=== PATIENT | male | born 1985 | race Caucasian/White ===

== ENCOUNTER 2020-03-28 14:00 | Outpatient (REF) | payer OTHER, SELFPAY ==
--- NOTE | 2020-03-28 14:28 | XR_ITS ---
EXAMINATION: XR CHEST CLINICAL INFORMATION: Shortness of breath COMPARISON: None TECHNIQUE: 2 views of the chest were obtained. FINDINGS: No significant abnormality is noted involving the heart, lungs, mediastinum, bony thorax or soft tissues. XR/XR chest 2V IMPRESSION: Unremarkable examination.
[2020-03-28 14:48] LABS: Hematocrit 46.1 % (42-52); Hemoglobin 15.7 g/dl (14.0-18.0); Mean Corpuscular HGB Conc 34.1 g/dl (31.0-36.0); Mean Platelet Volume 9.6 fL (9.4-12.4); Platelet Count 220 X10*3/uL (160-400); Red Blood Count 5.24 X10*6/uL (4.60-5.80); Red Cell Distribution Width 12.2 % (11.0-16.0); White Blood Count 5.9 X10*3/uL (4.8-10.8)
[2020-03-28 15:12] LABS: Alanine Aminotransferase 21 U/L (0-40); Albumin Level 4.9 g/dL (3.5-5.0); Alkaline Phosphatase 53 U/L (39-117); Anion Gap 13 (12-20); Aspartate Amino Transferase 18 U/L (5-37); Bilirubin Direct < 0.2 mg/dL (0.0-0.5); Bilirubin Total 0.4 mg/dL (0.0-1.0); Blood Urea Nitrogen 18 mg/dL (9-16); Calcium 9.8 mg/dL (8.4-10.2); Carbon Dioxide 29 mmol/L (22-29); Chloride 102 mmol/L (96-108); Cholesterol 284 mg/dL; Estimated Glomerular Filt Rate > 60; Glucose Random 98 mg/dL (60-115); HDL Cholesterol 43 mg/dL; Potassium 4.7 mmol/l (3.3-5.1); Sodium 139 mmol/L (135-145); Total Protein 7.8 g/dL (6.5-8.0); Triglycerides 407 mg/dL
== END 2020-03-28 14:01 | disposition home or self-care (01) ==
LOC: HO.LAB 14:00
PROVIDERS: PCP Internal Medicine; Visit Provider Internal Medicine
DX: Z00.01 Encounter for general adult medical examination with abnormal findings (principal); R06.02 Shortness of breath
CPT/HCPCS: 36415; 71046; 80048; 80061; 80076; 85027

== ENCOUNTER → 2020-07-11 13:54 | Outpatient (BNVA) | payer OTHER, SELFPAY | PROVIDERS: PCP Internal Medicine; Visit Provider Urology | DX: Z30.09 Encounter for other general counseling and advice on contraception (principal); F41.8 Other specified anxiety disorders | CPT/HCPCS: 99202 ==

== ENCOUNTER → 2020-11-22 10:48 | Outpatient (BNVA) | payer OTHER, SELFPAY | PROVIDERS: PCP Internal Medicine; Visit Provider Urology | DX: Z30.09 Encounter for other general counseling and advice on contraception (principal); F41.8 Other specified anxiety disorders | CPT/HCPCS: 55250 ==

== ENCOUNTER → 2021-02-23 09:12 | Outpatient (BNVA) | payer BC, OTHER, SELFPAY | PROVIDERS: PCP Internal Medicine; Visit Provider Urology | DX: Z48.816 Encounter for surgical aftercare following surgery on the genitourinary system (principal); Z98.52 Vasectomy status; F41.8 Other specified anxiety disorders | CPT/HCPCS: 99212 ==

== ENCOUNTER 2021-10-17 08:38 | Outpatient (REF) | payer BC, SELFPAY ==
[2021-10-17 09:14] LABS: Hematocrit 49.3 % (42.0-52.0); Hemoglobin 16.8 g/dl (14.0-18.0); Mean Corpuscular HGB Conc 34.1 g/dl (31.0-36.0); Mean Platelet Volume 9.3 fL (9.4-12.4); Platelet Count 221 X10*3/uL (160-400); Red Cell Distribution Width 12.6 % (11.0-16.0); White Blood Count 4.9 X10*3/uL (4.8-10.8)
[2021-10-17 09:50] LABS: Alanine Aminotransferase 20 U/L (0-40); Albumin Level 4.8 g/dL (3.5-5.0); Alkaline Phosphatase 55 U/L (39-117); Anion Gap 13 (12-20); Aspartate Amino Transferase 17 U/L (5-37); Bilirubin Direct 0.2 mg/dL (0.0-0.5); Bilirubin Total 0.7 mg/dL (0.0-1.0); Blood Urea Nitrogen 13 mg/dL (9-16); Calcium 9.6 mg/dL (8.4-10.2); Carbon Dioxide 27 mmol/L (22-29); Chloride 103 mmol/L (96-108); Cholesterol 272 mg/dL; Estimated Glomerular Filt Rate > 60; Glucose Random 105 mg/dL (60-115); HDL Cholesterol 47 mg/dL; LDL Cholesterol Calculated 171 mg/dl; Potassium 4.5 mmol/L (3.3-5.1); Sodium 138 mmol/L (135-145); Total Protein 7.9 g/dL (6.5-8.0); Triglycerides 270 mg/dL
[2021-10-17 10:00] LABS: Thyroid Stimulating Hormone 1.64 uIU/mL (0.32-4.0)
[2021-10-17 11:58] LABS: Appearance Urine CLEAR; Color Urine YELLOW; Glucose Urine UA NEG (NEG); Leukocyte Esterase Urine NEG (NEG); Nitrite Urine NEG (NEG); PH 5.5 (5.0-8.0); Specific Gravity - Urine >= 1.030 (1.005-1.025); Urine Blood 2+ (NEG); Urine Ketones NEG (NEG); Urine Protein NEG (NEG-TRACE)
[2021-10-17 12:39] LABS: RBC Urine 0-2 /HPF (0); WBC Urine 0-2 /HPF (0-4)
== END 2021-10-17 08:39 | disposition home or self-care (01) ==
LOC: HO.LAB 08:38
PROVIDERS: PCP Internal Medicine; Visit Provider Internal Medicine
DX: Z00.01 Encounter for general adult medical examination with abnormal findings (principal)
CPT/HCPCS: 36415; 80048; 80061; 80076; 81001; 81003; 84443; 85027

== ENCOUNTER 2022-10-17 08:33 | Outpatient (REF) | payer OTHER, SELFPAY ==
[2022-10-17 09:47] LABS: Hematocrit 48.1 % (42.0-52.0); Hemoglobin 16.3 g/dl (14.0-18.0); Mean Corpuscular HGB Conc 33.9 g/dl (31.0-36.0); Mean Corpuscular Hemoglobin 29.3 pg (27.0-33.0); Mean Corpuscular Volume 86.4 fL (80.0-98.0); Mean Platelet Volume 9.8 fL (9.4-12.4); Platelet Count 183 X10*3/uL (160-400); Red Blood Count 5.57 X10*6/uL (4.60-5.80); Red Cell Distribution Width 12.3 % (11.0-16.0)
[2022-10-17 09:50] LABS: Appearance Urine Clear; Color Urine Yellow; Glucose Urine UA Negative (Negative); Leukocyte Esterase Urine Negative (Negative); Nitrite Urine Negative (Negative); PH 5.5 (5.0-9.0); Specific Gravity - Urine >= 1.030 (1.005-1.025); UMIC TRIGGER UA YES; Urine Blood Moderate (2+) (Negative); Urine Ketones Negative (Negative); Urine Protein Trace mg/dL (Neg-Trace)
[2022-10-17 09:53] LABS: Bacteria Urine None Seen (None Seen); Hyaline Casts Urine 0-2 /LPF (0-2); Squamous Epithelial Cell Urine 0-2 /HPF (0-2); WBC Urine 0-5 /HPF (0-5)
[2022-10-17 10:05] LABS: Alanine Aminotransferase 24 U/L (0-40); Albumin Level 4.6 g/dL (3.5-5.0); Alkaline Phosphatase 57 U/L (39-117); Anion Gap 12 (12-20); Aspartate Amino Transferase 20 U/L (5-37); Bilirubin Direct 0.2 mg/dL (0.0-0.5); Bilirubin Total 0.6 mg/dL (0.0-1.0); Blood Urea Nitrogen 16 mg/dL (9-16); Calcium 9.8 mg/dL (8.4-10.2); Carbon Dioxide 28 mmol/L (22-29); Chloride 105 mmol/L (96-108); Cholesterol 160 mg/dL; Estimated Glomerular Filt Rate > 60; Glucose Random 102 mg/dL (60-115); HDL Cholesterol 39 mg/dL; LDL Cholesterol Calculated 86 mg/dl; Potassium 4.9 mmol/L (3.3-5.1); Sodium 140 mmol/L (135-145); Total Protein 7.5 g/dL (6.5-8.0); Triglycerides 177 mg/dL
[2022-10-17 10:13] LABS: Thyroid Stimulating Hormone 1.68 uIU/mL (0.32-4.0)
== END 2022-10-17 08:34 | disposition home or self-care (01) ==
LOC: HO.LAB 08:33
PROVIDERS: PCP Internal Medicine; Visit Provider Internal Medicine
DX: Z00.01 Encounter for general adult medical examination with abnormal findings (principal); E78.00 Pure hypercholesterolemia, unspecified
CPT/HCPCS: 36415; 80048; 80061; 80076; 81001; 84443; 85027

== ENCOUNTER 2022-10-24 10:20 | Outpatient (AMB) | payer OTHER, SELFPAY ==
--- NOTE | 2022-10-24 10:26 | A.OFFPC_ITS ---
Vital Signs 10/24/22 10:27 Height 5 ft 7 in Weight 168 lb 2 oz BMI 26.3 BP 122/68 Blood Pressure Location Lt brachial Position Sitting Pulse 87 Pulse Source Pulse Oximeter Pulse Oximetry (%) 100 Oxygen Delivery Method Room Air Intake Visit Reasons: Annual Exam Intake Note: Patient is here today for a physical. 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: Not Required per policy Accompanied by: Self / Same As Patient Allergies No Known Allergies Allergy (Verified 10/24/22 15:00) Medication List - Last Reconciled 10/24/22 by Maikel Combs MD atorvastatin 10 mg PO BEDTIME minocycline 50 mg PO BID omeprazole 20 mg PO DAILY tadalafil (Cialis) 10 mg PO DAILY PRN Tobacco use date assessed: 10/24/22 Dental Screening Dental Screen Date: 10/24/22 Did you have a dental visit in the last 12 months?: No Did you have a dental problem in the last 6 months where you did not have access to dental care?: No Was dental information given to patient?: No HPI Annual Exam HPI Details 37-year-old male presents to the office requesting an annual physical. [facility] Medical History Cystic acne GERD (gastroesophageal reflux disease) Hypercholesterolemia Surgical History H/O vasectomy [place] teeth extracted Family History Mother Breast cancer Father Emphysema lung Social History Housing: House Alcohol intake: current Alcohol intake frequency: a few times a week Patient Tobacco Use Status: Former Tobacco user Cigarette Packs Per Day: 10 Years Smoked: 10 e-Cigarette/Vaping Use: Never Used Second Hand Smoke Exposure: No service: No Current occupational status: employed Cognitive needs: No Hearing needs: No Vision needs: No Questionnaire Thrive Questionnaire Date Thrive assessed: 04/16/22 DELMY-7 AMB Questionnaire DELMY-7 Date DELMY - 7 assessed: 04/16/22 Source: Developed by Drs. Andres iPerre, Julieta Hinds, Patrick Villaseñor and colleagues, with an educational omari from [employer]. Physical exam (Primary Care) Vital Signs: Last Vital Signs Pulse 87 10/24/22 10:27 BP 122/68 10/24/22 10:27 Pulse Ox 100 10/24/22 10:27 Oxygen Delivery Method Room Air 10/24/22 10:27 Care Plan Goal for BP management: Blood pressure is in range. BMI result Body Mass Index 26.3 Tobacco/Smoking Status: Tobacco use Status Tobacco use date assessed 10/24/22 10/24/22 10:33 Patient Tobacco Use Status Former Tobacco user 10/24/22 10:33 e-Cigarette/Vaping Use Never Used 10/24/22 10:33 Thrive Assessment: Date of Thrive Assessment Date Thrive assessed 04/16/22 10/24/22 10:33 Const General: cooperative, healthy appearing and comfortable HENMT Head: Yes normal to inspection and Yes atraumatic Eyes General: appearance normal, both eyes and all related structures Neck Neck: Yes normal visual inspection and Yes full ROM Chest Chest palpation & inspection: normal inspection of the chest Resp Effort & Inspection: normal respiratory effort Auscultation: clear to auscultation bilaterally Cardio Jugular venous distension: no JVD Palpation: normal PMI Rate: regular rate Heart sounds: S1 normal heart sound present and S2 normal heart sound present GI Palpation (GI): Soft to palpation and No hepatosplenomegaly present Skin Other: Back: Extensive cystic acne present. Extrem General: Yes normal to inspection and Yes full ROM Assessment and Plan Assessment & Plan (1) Cystic acne: Code(s): L70.0 - Acne vulgaris Plan: Patient was encouraged to see the professor of counseling. He did not go when the last appointment was made. Phone number was provided to him again. (2) Hypercholesterolemia: Code(s): E78.00 - Pure hypercholesterolemia, unspecified Plan: Blood work is in range. (3) Annual physical exam: Code(s): Z00.00 - Encounter for general adult medical examination without abnormal findings Coding Level of Care Code Est Pt Prev Care 18-39y(87194) Diagnoses Cystic acne L70.0 Hypercholesterolemia E78.00 Annual physical exam Z00.00
[2022-10-24 10:27] VITALS: BP 122/68; PULSE 87; O2SAT 100; BMI 26.3
== END 2022-10-24 11:05 | disposition home or self-care (01) ==
PROVIDERS: PCP Internal Medicine; Visit Provider Internal Medicine
DX: L70.0 Acne vulgaris (principal); E78.00 Pure hypercholesterolemia, unspecified; Z00.00 Encounter for general adult medical examination without abnormal findings
CPT/HCPCS: 99395

== ENCOUNTER 2023-01-27 08:58 | Outpatient (REF) | payer OTHER, SELFPAY ==
[2023-01-27 10:23] LABS: Alanine Aminotransferase 76 U/L (0-40); Albumin Level 4.6 g/dL (3.5-5.0); Alkaline Phosphatase 58 U/L (39-117); Aspartate Amino Transferase 37 U/L (5-37); Bilirubin Direct 0.1 mg/dL (0.0-0.5); Bilirubin Total 0.5 mg/dL (0.0-1.0); Cholesterol 218 mg/dL (<200); HDL Cholesterol 46 mg/dL (>40); LDL Cholesterol Calculated 124 mg/dL (<100); Total Protein 7.5 g/dL (6.5-8.0); Triglycerides 243 mg/dL (<150)
== END 2023-01-27 08:59 | disposition home or self-care (01) ==
LOC: HO.LAB 08:58
PROVIDERS: PCP Internal Medicine; Visit Provider Physician Assistant Medical
DX: D22.5 Melanocytic nevi of trunk (principal); D18.01 Hemangioma of skin and subcutaneous tissue; L70.0 Acne vulgaris; Z51.81 Encounter for therapeutic drug level monitoring; Z79.899 Other long term (current) drug therapy
CPT/HCPCS: 36415; 80061; 80076

== ENCOUNTER 2023-10-30 08:28 | Outpatient (AMB) | payer OTHER, SELFPAY ==
[2023-10-30 08:29] VITALS: BP 122/86; PULSE 79; O2SAT 99; BMI 25.7
--- NOTE | 2023-10-30 08:29 | A.OFFPC_ITS ---
Vital Signs 10/30/23 08:29 Height 5 ft 7 in Weight 164 lb 4 oz BMI 25.7 BP 122/86 Blood Pressure Location Lt brachial Position Sitting Pulse 79 Pulse Source Pulse Oximeter Pulse Oximetry (%) 99 Oxygen Delivery Method Room Air Intake Visit Reasons: pe Intake Note: Patient is here today for a physical. Deck Scaler Required: No Allergies No Known Allergies Allergy (Verified 10/30/23 08:30) Tobacco use date assessed: 10/30/23 Dental Screening Dental Screen Date: 10/30/23 Did you have a dental visit in the last 12 months?: No Did you have a dental problem in the last 6 months where you did not have access to dental care?: No HPI pe HPI Details 38-year-old male presents to the office for an annual physical. Patient did see the production control specialist for cystic acne. Because of his high triglycerides, Accutane was not prescribed. He did well with the topical ointment he got. Patient has also stopped the omeprazole that was prescribed for GERD. He no longer needs the medication. [facility] Medical History Hypercholesterolemia GERD (gastroesophageal reflux disease) Cystic acne Surgical History H/O vasectomy [place] teeth extracted Family History Mother Breast cancer Father Emphysema lung Social History Housing: House Alcohol intake: current Alcohol intake frequency: a few times a week Patient Tobacco Use Status: Former Tobacco user Cigarette Packs Per Day: 10 Years Smoked: 10 e-Cigarette/Vaping Use: Never Used Second Hand Smoke Exposure: No service: No Current occupational status: employed Cognitive needs: No Hearing needs: No Vision needs: No Questionnaire PHQ-9 Over the last 2 weeks, how often have you been bothered by any of the following problems? 1. Little interest or pleasure in doing things: not at all 2. Feeling down, depressed, or hopeless: not at all 3. Trouble falling or staying asleep, or sleeping too much: not at all 4. Feeling tired or having little energy: not at all 5. Poor appetite or overeating: not at all 6. Feeling bad about yourself - or that you are a failure or have let yourself or your family down: not at all 7. Trouble concentrating on things, such as reading the newspaper or watching television: not at all 8. Moving or speaking so slowly that other people could have noticed. Or the opposite - being so fidgety or restless that you have been moving around a lot more than usual: not at all 9. Thoughts that you would be better off or of hurting yourself in some way: not at all Total score: 0 Depression Screening Interpretation: Negative Depression Screening Done: Yes 88259 - PHQ-9 Billing: Yes Source: Developed by Drs. Andres Pierre, Julieta Hinds, Patrick Villaseñor and colleagues, with an educational omari from [employer]. Thrive Questionnaire Date Thrive assessed: 10/30/23 I am a: Patient What is your living situation today?: I have a steady place to live Within the past 12 months, did the food you bought not last and you didn't have the money to get more?: Never true Within the past 12 months, did you worry whether your food would run out before you got money to buy more?: Never true Do you have trouble paying for medicines?: No Do you have trouble getting transportation to medical appointments?: No Do you have trouble paying your heating and electricity bill?: No Do you have trouble taking care of your child, family member or friend?: No Do you have trouble with day-to-day activities such as bathing, preparing meals, shopping, managing finances, etc.?: No Are you currently unemployed and looking for a job?: No Are you interested in more education?: No Please select the resources that you would like help with: None Currently or been in a relationship where the following occur: No concerns reported THRIVE Score: 0 AUDIT C Alcohol Use Questionnaire (AUDIT-C) 1. How often do you have a drink containing alcohol?: Monthly or less 2. How many drinks containing alcohol do you have on a typical day when you are drinking?: 1 or 2 3. How often do you have six or more drinks on one occasion?: Never Total Score: 1 DELMY-7 AMB Questionnaire DELMY-7 Date DELMY - 7 assessed: 10/30/23 Feeling nervous, anxious, or on edge: 0 = Not at all Not being able to stop or control worryin = Not at all Worrying too much about different things: 0 = Not at all Trouble relaxin = Not at all Being so restless that it is hard to sit still: 0 = Not at all Becoming easily annoyed or irritable: 0 = Not at all Feeling afraid as if something awful might happen: 0 = Not at all Total DELMY-7 score (0-4 normal; 5-9 mild; 10-14 moderate; 15-21 severe): 0 Source: Developed by Drs. Andres Pierre, Julieta Hinds, Patrick Villaseñor and colleagues, with an educational omari from [employer]. DELMY-7 Assessment Billing DELMY-7 Assessment Tool: DELMY-7 Assessment 39294 Physical exam (Primary Care) Vital Signs: Last Vital Signs Pulse 79 10/30/23 08:29 BP 122/86 10/30/23 08:29 Pulse Ox 99 10/30/23 08:29 Oxygen Delivery Method Room Air 10/30/23 08:29 Care Plan Goal for BP management: Blood pressure is in range. BMI result Body Mass Index 25.7 Tobacco/Smoking Status: Tobacco use Status Tobacco use date assessed 10/30/23 10/30/23 08:37 Patient Tobacco Use Status Former Tobacco user 10/30/23 08:37 e-Cigarette/Vaping Use Never Used 10/30/23 08:37 PHQ-9: PHQ-9 Score PHQ-9: Total score 0 10/30/23 08:37 Depression Screening Interpretation: Negative Thrive Assessment: Date of Thrive Assessment Date Thrive assessed 10/30/23 10/30/23 08:37 Currently or been in a relationship where the following occur: No concerns reported Const General: cooperative and healthy appearing Nutritional Appearance: well nourished Orientation/consciousness: patient oriented x3 Limitations: no limitations HENMT Head: Yes normal to inspection Eyes General: appearance normal, both eyes and all related structures Neck Neck: Yes normal visual inspection Chest Chest palpation & inspection: normal palpation of entire chest wall Resp Effort & Inspection: normal respiratory effort Skin Other: Back: Most acne lesions are healing. No active, erythematous lesions. Neuro General: patient oriented x3 Assessment and Plan Assessment & Plan (1) Hypercholesterolemia: Code(s): E78.00 - Pure hypercholesterolemia, unspecified Plan: Fasting blood work has been ordered. Will adjust the cholesterol medication dosage after the results are available. Counseling on the importance of diet and exercise done. (2) GERD (gastroesophageal reflux disease): Code(s): K21.9 - Gastro-esophageal reflux disease without esophagitis Plan: Ppi has been discontinued. (3) Annual physical exam: Code(s): Z00.00 - Encounter for general adult medical examination without abnormal findings Plan: Fasting blood work has been ordered. (4) Cystic acne: Code(s): L70.0 - Acne vulgaris Plan: Patient has obtain good results on a Aklief cream. He is getting this has a prescription from his production control specialist. Coding Level of Care Code Est Pt Prev Care 18-39y(03549) Diagnoses Hypercholesterolemia E78.00 GERD (gastroesophageal reflux disease) K21.9 Annual physical exam Z00.00 Cystic acne L70.0 Additional Codes DELMY-7 Assessment Billing - DELMY-7 Assessment Tool: DELMY-7 Assessment 67141 ([id number])
== END 2023-10-30 08:56 | disposition home or self-care (01) ==
PROVIDERS: PCP Internal Medicine; Visit Provider Internal Medicine
DX: Z00.00 Encounter for general adult medical examination without abnormal findings (principal); E78.00 Pure hypercholesterolemia, unspecified; K21.9 Gastro-esophageal reflux disease without esophagitis; L70.0 Acne vulgaris
CPT/HCPCS: 99395

== ENCOUNTER 2024-06-09 08:24 | Outpatient (REF) | payer OTHER, SELFPAY ==
[2024-06-09 10:27] LABS: Appearance Urine Clear; Color Urine Yellow; Glucose Urine UA Negative (Negative); Leukocyte Esterase Urine Negative (Negative); Nitrite Urine Negative (Negative); Specific Gravity - Urine >= 1.030 (1.005-1.025); UMIC TRIGGER UA YES; Urine Blood Moderate (2+) (Negative); Urine Ketones Negative (Negative); Urine Protein Negative (Neg-Trace)
[2024-06-09 10:43] LABS: Hematocrit 46.3 % (42.0-52.0); Hemoglobin 15.7 g/dl (14.0-18.0); Mean Corpuscular HGB Conc 33.9 g/dl (31.0-36.0); Mean Corpuscular Volume 85.6 fL (80.0-98.0); Mean Platelet Volume 9.8 fL (9.4-12.4); Platelet Count 206 X10*3/uL (160-400); Red Blood Count 5.41 X10*6/uL (4.60-5.80); Red Cell Distribution Width 12.8 % (11.0-16.0); White Blood Count 5.1 X10*3/uL (4.8-10.8)
[2024-06-09 11:23] LABS: Bacteria Urine 2+ (None Seen); Hyaline Casts Urine 0-2 /LPF (0-2); Squamous Epithelial Cell Urine 0-2 /HPF (0-2); WBC Urine 0-5 /HPF (0-5)
[2024-06-09 12:02] LABS: Albumin Level 4.4 g/dL (3.5-5.0); Alkaline Phosphatase 51 U/L (39-117); Anion Gap 10 (12-20); Aspartate Amino Transferase 29 U/L (5-37); Bilirubin Direct 0.2 mg/dL (0.0-0.5); Bilirubin Total 0.7 mg/dL (0.0-1.0); Blood Urea Nitrogen 11 mg/dL (9-16); Calcium 9.3 mg/dL (8.4-10.2); Carbon Dioxide 27 mmol/L (22-29); Chloride 108 mmol/L (96-108); Cholesterol 141 mg/dL (<200); Estimated Glomerular Filt Rate > 60; Glucose Random 102 mg/dL (60-115); HDL Cholesterol 43 mg/dL (>40); LDL Cholesterol Calculated 78 mg/dL (<100); Potassium 4.3 mmol/L (3.3-5.1); Sodium 141 mmol/L (135-145); Total Protein 7.2 g/dL (6.5-8.0); Triglycerides 104 mg/dL (<150)
[2024-06-09 12:28] LABS: Alanine Aminotransferase 29 U/L (0-40)
== END 2024-06-09 08:25 | disposition home or self-care (01) ==
LOC: HO.HMGCLDS 08:24
PROVIDERS: PCP Internal Medicine; Visit Provider Internal Medicine
DX: E78.00 Pure hypercholesterolemia, unspecified (principal); L70.0 Acne vulgaris
CPT/HCPCS: 36415; 80048; 80061; 80076; 81001; 84443; 85027

== ENCOUNTER 2024-08-05 08:53 | Outpatient (AMB) | payer OTHER, SELFPAY ==
--- NOTE | 2024-08-05 08:55 | A.OFFVIS_ITS ---
Intake Visit Reasons: hematuria Intake Note: pt here today for: Hematuria allergies:None blood thinner:None Health Service Coordinator Required: No Allergies No Known Allergies Allergy (Verified 08/05/24 09:32) Medication List - Last Reconciled 08/05/24 by PETRONA Prado atorvastatin 10 mg PO BEDTIME tadalafil (Cialis) 10 mg PO DAILY PRN HPI Comments Details: Juan JOHNSON is a very pleasant 39-year-old male patient of Dr. Combs. He has a past medical history of diverticulosis, hypercho lesteremia, GERD, and cystic acne. He presents to the office today as a new patient for microscopic hematuria. In discussion with the patient today he reports noting over the last 1-2 years having had microscopic blood in his urine at which time his PCP recommended urology referral for further assessment evaluation. When asked he does report a previous history of nicotine dependence for approximately 10 years. He reports smoking half a pack of cigarettes for 10 years however has not smoked in the last 5 years. He denies any previous workplace chemical exposure. He otherwise denies any bothersome urinary issues. He denies urinary urgency, urinary frequency, incontinence, nocturia, hematuria, dysuria, foul smelling urine, changes to urinary stream, flank pain, fever, and or chills. He is happy with his current voiding parameters. Reviewed UA - persistant Microscopic hematuria. I discussed reasons for blood in the urine may include but are not limited to kidney stones, cancer in the urinary tract, BPH, kidney stone disease or inflammatory conditions of the urinary tract. We discussed further workup of microscopic hematuria in risks and benefits of these interventions as well as surveillance monitoring. All questions were answered. He does have a previous history following up with Dr. Moyer in 2020 and underwent a vasectomy. Plan I recommend a CT scan to evaluate the urinary tract in detail, due to the patient's history of smoking. A cystoscopy is also suggested to directly visualize the bladder. The urine sample will be sent for cytology. Follow-up will be scheduled to discuss the CT, cytology and cystoscopy results. Surveillance will continue with periodic evaluations, and future bladder re- evaluation intervals will depend on initial findings. Patient was informed and verbally consented to the use of an ambient scribe for clinic note documentation during this visit. [facility] Medical History Diverticulosis Hematuria Hypercholesterolemia GERD (gastroesophageal reflux disease) Cystic acne Surgical History H/O vasectomy [place] teeth extracted Family History Mother Breast cancer Father Emphysema lung Social History Housing: House Alcohol intake: current Alcohol intake frequency: a few times a week Patient Tobacco Use Status: Former Tobacco user Cigarette Packs Per Day: 10 Years Smoked: 10 e-Cigarette/Vaping Use: Never Used Second Hand Smoke Exposure: No service: No Current occupational status: employed Cognitive needs: No Hearing needs: No Vision needs: No Review of Systems Const All systems reviewed & are unremarkable except as noted in HPI and below Physical Exam Const General: cooperative, healthy appearing, comfortable, no acute distress, well developed, alert and awake Orientation/consciousness: patient oriented x3 Limitations: no limitations HEENT Head: Yes normal to inspection, Yes normocephalic and Yes atraumatic Ears: hearing grossly normal bilaterally Eyes General: appearance normal, both eyes and all related structures Neck Neck: Yes normal visual inspection and Yes trachea midline Chest Chest palpation & inspection: normal inspection of the chest Resp Effort & Inspection: normal respiratory effort and able to speak in complete sentences Cardio Rate: regular rate GI Inspection: Yes normal to inspection General: Yes no CVA tenderness Back/Spine/Pelvis Back: no CVA tenderness Skin General skin exam: no rashes or lesions noted Neuro General: patient oriented x3 Extrem General: Yes normal to inspection Psych Appearance: grossly normal and well kempt Mental Status: mental status grossly normal Speech and movement: Normal speech and movement present and Clear speech present Affect: normal affect Attitude: cooperative Thought process: Normal thought process present Thought content: Normal thought content present Insight: Fair insight present (Psych) Judgement: Fair judgement present (Psych) Results AMB Urinalysis, Automated UA Leukoctes 0 Gerard/uL Last Edit by Elsie Muhammad on 08/05/24 09:04 UA Nitrite Negative Last Edit by Elsie Muhammad on 08/05/24 09:04 UA Urobilinogen 0.2 mg/dL Last Edit by Elsie Muhammad on 08/05/24 09:04 UA Protein 15 mg/dL Last Edit by Elsie Jb on 08/05/24 09:04 UA pH 6.0 Last Edit by Elsie Jb on 08/05/24 09:04 UA Blood 2 Khalif/uL Last Edit by Elsie Jb on 08/05/24 09:04 UA Specific [place] 1.020 Last Edit by Elsei Jb on 08/05/24 09:04 UA Ketone Negative Last Edit by Elsie Jb on 08/05/24 09:04 UA Bilirubin 0 mg/dL Last Edit by Elsie Jb on 08/05/24 09:04 UA Glucose 0 mg/dL Last Edit by Elsie Jb on 08/05/24 09:04 Results Reviewed Results Reviewed: Laboratory Last Values Urine pH (Auto) 6.0 08/05/24 08:57 Specific [place] (Auto) 1.020 08/05/24 08:57 Urine Protein (Auto) 15 mg/dL 08/05/24 08:57 Glucose (UA)(Auto) 0 mg/dL 08/05/24 08:57 Urine Ketones (Auto) Negative 08/05/24 08:57 Urine Blood (Auto) 2 Khalif/uL 08/05/24 08:57 Urine Nitrite (Auto) Negative 08/05/24 08:57 Urine Bilirubin (Auto) 0 mg/dL 08/05/24 08:57 Urine Urobilinogen (Auto) 0.2 mg/dL 08/05/24 08:57 Leukocyte Esterase (Auto) 0 Gerard/uL 08/05/24 08:57 Assessment & Plan Assessment & Plan (1) Hematuria: Code(s): R31.9 - Hematuria, unspecified Category: Medical (2) History of nicotine dependence: Code(s): Z87.891 - Personal history of nicotine dependence Category: Medical Plan In office urinalysis results reviewed with the patient today; as noted above; will send for urine cytology. We discussed potential causes of microscopic hematuria as well as further workup in risks and benefits of these interventions. He currently denies any bothersome urinary issues or concerns. He reports be happy with current voiding parameters. Will obtain CT urogram for further assessment evaluation. BUN and creatinine ordered for imaging. Follow-up next available in office cystoscopy with imaging and labs to be completed prior; or sooner with any issues, concerns, and or questions. Orders: Orders AMB Urinalysis Automated Today R31.9 - Hematuria, unspecified CT urogram Today R31.0 - Gross hematuria Creatinine Today R39.15 - Urgency of urination Urine Cytology Today R31.9 - Hematuria, unspecified Blood Urea Nitrogen Today R39.15 - Urgency of urination Patient Instructions: The patient had an opportunity to ask questions regarding the treatment plan. All questions were answered. Physical exam, labs, and imaging were discussed and reviewed in detail. As well as risks, benefits, and discussion of treatment choices. No major barriers to understanding were identified. The patient expressed understanding and agreement with the above treatment plan. The patient was made aware they should contact our office by phone for worsening of their current condition, the appearance of new symptoms, or with any questions or concerns. Compliance is encouraged with any medications and follow up testing that is ordered. It is a privilege to be allowed the opportunity to participate in? your urological care.? Again, if you have any questions or concerns If you have any questions or concerns please do not hesitate to contact me. The office is [phone]. This note is constructed using voice recognition software. While every effort has been made to ensure accuracy lab engineer errors may have been included. Yours sincerely, PETRONA Prado Coding Level of Care Code New Pt Level 3 (32981) Diagnoses Hematuria R31.9 History of nicotine dependence Z87.891
== END 2024-08-05 09:34 | disposition home or self-care (01) ==
LOC: HO.HUSH 08:53
PROVIDERS: PCP Internal Medicine; Visit Provider Nurse Practitioner Family
DX: R31.9 Hematuria, unspecified (principal); Z87.891 Personal history of nicotine dependence
CPT/HCPCS: 99203

== ENCOUNTER 2024-08-05 08:53 | Outpatient (REF) | payer OTHER, SELFPAY ==
[2024-08-05 17:06] LABS: Urine Cytology See Pathology rpt
== END 2024-08-05 08:54 | disposition home or self-care (01) ==
LOC: HO.LAB 08:53
PROVIDERS: PCP Internal Medicine; Visit Provider Nurse Practitioner Family
DX: R31.9 Hematuria, unspecified (principal); Z87.891 Personal history of nicotine dependence
CPT/HCPCS: 81003; 88112

== ENCOUNTER 2024-09-08 07:53 | Outpatient (REF) | payer OTHER, SELFPAY ==
--- NOTE | ~2024-09-08 | CT_ITS ---
EXAMINATION: CT ABDOMEN PELVIS UROGRAPHY WITHOUT THEN WITH IV CONTRAST HISTORY: R31.0 - Gross hematuria COMPARISON: There are no prior studies available for comparison. TECHNIQUE: CT scan of the abdomen and pelvis was performed before and after the intravenous administration of 85 mL Omnipaque 350. Postcontrast images were obtained using a split bolus technique. Coronal and sagittal reformatted images were generated and reviewed. Oral contrast material was not administered per department protocol. This CT exam was performed with one or more of the following dose reduction techniques: automated exposure control, adjustment of the mA and/or kV according to patient size, use of iterative reconstruction technique. DLP: 550 mGy-cm ABDOMEN: LOWER CHEST: The visualized lung bases are clear. There is no pleural effusion. CARDIOVASCULATURE: The heart is normal in size. There is no pericardial effusion. LIVER: The liver is normal in size and contour. There is a heterogeneously enhancing mass in the posterior segment of the right lobe of the liver measuring approximately 4.0 cm in size which could represent hemangioma. The hepatic and portal veins are patent. GALLBLADDER / BILE DUCTS: The gallbladder is unremarkable. There is no intra or extrahepatic biliary ductal dilatation. SPLEEN: The spleen is normal in size. No focal splenic lesion is identified. PANCREAS: The pancreas is unremarkable in appearance. ADRENAL GLANDS: Within normal limits. KIDNEYS/RETROPERITONEUM: No renal or ureteral calculi are identified. There is no hydronephrosis or hydroureter. No renal masses are identified. The intrarenal collecting systems are unremarkable in appearance. The ureters are normal in caliber. No ureteral filling defects are identified. LYMPH NODES: No abdominal or pelvic lymphadenopathy. VASCULATURE: The abdominal aorta is normal in caliber. MESENTERY/PERITONEUM: No free fluid. No masses. There is no free intraperitoneal gas. STOMACH: The stomach is collapsed, limiting evaluation. SMALL BOWEL: The small bowel is normal in caliber. COLON: There is diverticulosis of the descending and sigmoid colon, without evidence of diverticulitis. APPENDIX: Normal. URINARY BLADDER/PELVIC ORGANS: The urinary bladder is nondistended, limiting evaluation. The prostate is normal in size. BONES / SOFT TISSUES: No suspicious bony or soft tissue abnormalities. CT/CT urogram IMPRESSION: 1. 4.0 cm mass in the posterior segment of the right lobe of the liver which may represent a hemangioma. Confirmation with MRI is suggested. 2. Otherwise unremarkable CT urogram. Electronically signed by: Andres Valdez MD 09/08/2024 01:24 PM EDT RP
[2024-09-08] MEDS: iohexoL 350 MG/ML 100 ML INFUS..BTL IV (11:44)
== END 2024-09-08 07:54 | disposition home or self-care (01) ==
LOC: HO.CT 07:53
PROVIDERS: PCP Internal Medicine; Visit Provider Nurse Practitioner Family
DX: R31.0 Gross hematuria (principal)
CPT/HCPCS: 74178; Q9967

== ENCOUNTER → 2024-09-08 07:55 | Outpatient (BNV) | payer OTHER, SELFPAY | PROVIDERS: PCP Internal Medicine; Visit Provider Radiology Diagnostic Radiology | DX: R31.0 Gross hematuria (principal) | CPT/HCPCS: 74178 ==

== ENCOUNTER 2024-09-16 08:53 | Outpatient (AMB) | payer OTHER, SELFPAY ==
--- NOTE | 2024-09-16 09:07 | MHC.OFFVIS ---
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 He is a patient of Dr. Souza he is seen for the following urologic conditions - microscopic hematuria Discovered through PCP Here for check cystoscopy which is normal Does have a 5 year pack per day smoking history in the distant past Denies any chemical exposures CT scan small vascular and abnormality in base of right kidney Highly likely to have persistent microscopic hematuria Would recommend periodic urology review every 4-5 years Otherwise may follow with PCP [facility] Medical History Diverticulosis Hematuria Hypercholesterolemia GERD (gastroesophageal reflux disease) Cystic acne Surgical History H/O vasectomy [place] teeth extracted Family History Mother Breast cancer Father Emphysema lung Social History Housing: House Alcohol intake: current Alcohol intake frequency: a few times a week Patient Tobacco Use Status: Former Tobacco user Cigarette Packs Per Day: 10 Years Smoked: 10 e-Cigarette/Vaping Use: Never Used Second Hand Smoke Exposure: No service: No Current occupational status: employed Cognitive needs: No Hearing needs: No Vision needs: No Review of Systems Const Denies chills and Denies fever(s) Card Reports no additional complaints and Denies syncope Resp Denies cough GI Denies abdominal pain and Denies heartburn Reports as per HPI and Denies change in libido Neuro Denies syncope Psych Denies change in libido Endo Denies change in libido Physical Exam Const General: cooperative, healthy appearing, comfortable and no acute distress Orientation/consciousness: patient oriented x3 HEENT Face and sinus: Yes normal facial exam Mouth: moist mucous membranes Neck Neck: Yes normal visual inspection, Yes full ROM and Yes trachea midline Chest Chest palpation & inspection: normal inspection of the chest Resp Effort & Inspection: normal respiratory effort, able to speak in complete sentences and no respiratory distress GI Inspection: Yes normal to inspection Back/Spine/Pelvis Cervical Spine: normal cervical lordosis Thoracic/Lumbar Spine: thoracic and lumbar spine normal to inspection Skin General skin exam: no rashes or lesions noted Neuro General: patient oriented x3, gait normal, tone normal and moves all extremities Extrem General: Yes normal to inspection and Yes capillary refill normal Office Procedures Cystoscopy Consent Discussed risk and benefit or proposed procedure with the patient. Information consent for procedure given to the patient. Discussed technical aspects, risks, benefits and alternatives in full. Addressed all of the patient's questions and concerns regarding the procedure. The patient demonstrated knowledge and understanding. They wish to proceed with this procedure. Preparation The patient was prepped in the usual manner. A clinical resource manager was present and in the room. Genitalia was prepped with betadine solution in a sterile manner. Lidocaine Jelly 2% was placed into the urethra and 16Fr flexible Olympus cystoscope was inserted into the meatus after adequate lubrication. Procedure Cystoscopy performed using a disposable Urovue digital 16 Swazi cystoscope. Meatus circumcised Urethra anterior and posterior urethra normal Prostatic Urethra unremarkable Bladder examination with retroflexion of cystoscope Bladder Orifices normal shape and position Bladder Capacity Normal Trabeculations Grade 0 Cellule Formation None Diverticulum Formation None Mucosal Erythema None Bladder Tumor None [id number] DISPOSABLE SCOPE URO-G FLEXIBLE SCOPE Procedure code (CPT) selection complete Office Meds lidocaine HCl 2 % mucosal jelly in applicator Performing Provider: Isacc Moyer MD Performing Location: [facility] [place] [facility] Administered by: Carlo Brown LPN on 09/16/24 09:23 Dose Route Admin Location Dispensed Lot Number Expiration Date [place] [employer] 10 mL intra-urethral 10 mL nitrofurantoin monohydrate/macrocrystals 100 mg capsule Performing Provider: Isacc Moyer MD Performing Location: [facility] [place] [facility] Administered by: Carlo Brown LPN on 09/16/24 09:23 Dose Route Admin Location Dispensed Lot Number Expiration Date [place] [employer]iter 100 mg PO 1 cap Assessment & Plan Assessment & Plan (1) Hematuria: Code(s): R31.9 - Hematuria, unspecified Category: Medical Plan P.r.n. follow-up Orders: Orders AMB Cystoscopy Today R31.9 - Hematuria, unspecified, Z87.891 - Personal history of nicotine dependence Patient Instructions: This note is constructed using voice recognition software. While every effort has been made to ensure accuracy cattle tester errors may have been included. Imaging studies, laboratory and physical exam results were discussed and reviewed in detail. No major barriers to patient understanding were identified. An opportunity to ask questions regarding the treatment plan was provided. All questions were answered. The patient expressed understanding and agreement with the above treatment plan. The patient is aware they should contact our office by phone for worsening of their current condition or the appearance of new urologic symptoms. Compliance is encouraged with any medications and followup testing that is ordered. It is a privilege to participate in the urologic care of your patient. If you have any questions or concerns regarding treatment for the above conditions, or other urologic issues, please do not hesitate to contact me. The office telephone contact is [phone]. Sincerely, Dr Isacc Moyer MD, [facility] - Urology Compassionate Specialist Care for the Genitourinary System Coding Level of Care Code Est Pt Level 3 (78358) Diagnoses Hematuria R31.9 CPT Codes Cystoscopy - CPT: 98692-[id number] ([id number])
== END 2024-09-16 09:58 | disposition home or self-care (01) ==
LOC: HO.HUSH 08:53
PROVIDERS: PCP Internal Medicine; Visit Provider Urology
DX: R31.9 Hematuria, unspecified (principal); Z87.891 Personal history of nicotine dependence; Z13.9 Encounter for screening, unspecified
CPT/HCPCS: 52000

== ENCOUNTER → 2024-09-16 08:53 | Outpatient (BNVA) | payer OTHER, SELFPAY | PROVIDERS: PCP Internal Medicine; Visit Provider Urology | DX: Z09 Encounter for follow-up examination after completed treatment for conditions other than malignant neoplasm (principal); R31.9 Hematuria, unspecified | CPT/HCPCS: 52000; 81003 ==

== ENCOUNTER 2024-11-04 08:26 | Outpatient (AMB) | payer OTHER, SELFPAY ==
--- NOTE | 2024-11-04 08:29 | A.OFFPC_ITS ---
Vital Signs 11/04/24 08:30 Height 5 ft 7 in Weight 158 lb 2 oz BMI 24.8 BP 130/68 Blood Pressure Location Lt brachial Position Sitting Pulse 81 Pulse Source Pulse Oximeter Temp 97.1 F Temp Source Temporal Artery Scan Pulse Oximetry (%) 100 Oxygen Delivery Method Room Air Intake Visit Reasons: PE Intake Note: Patient is here today for a physical. Setter Automatic Spinning Lathe Required: No Tile Setter Supervisor: Not Required per policy Accompanied by: Self / Same As Patient Allergies No Known Allergies Allergy (Verified 11/04/24 08:30) Tobacco use date assessed: 11/04/24 Dental Screening Dental Screen Date: 11/04/24 Did you have a dental visit in the last 12 months?: No Did you have a dental problem in the last 6 months where you did not have access to dental care?: No Was dental information given to patient?: No [facility] Medical History Diverticulosis Hematuria Hypercholesterolemia GERD (gastroesophageal reflux disease) Cystic acne Surgical History H/O vasectomy [place] teeth extracted Family History Mother Breast cancer Father Emphysema lung Social History Housing: House Alcohol intake: current Alcohol intake frequency: a few times a week Patient Tobacco Use Status: Former Tobacco user Cigarette Packs Per Day: 10 Years Smoked: 10 e-Cigarette/Vaping Use: Never Used Second Hand Smoke Exposure: Yes service: No Current occupational status: employed Cognitive needs: No Hearing needs: No Vision needs: No Questionnaire PHQ-9 Over the last 2 weeks, how often have you been bothered by any of the following problems? 1. Little interest or pleasure in doing things: not at all 2. Feeling down, depressed, or hopeless: not at all 3. Trouble falling or staying asleep, or sleeping too much: not at all 4. Feeling tired or having little energy: several days 5. Poor appetite or overeating: not at all 6. Feeling bad about yourself - or that you are a failure or have let yourself or your family down: not at all 7. Trouble concentrating on things, such as reading the newspaper or watching television: not at all 8. Moving or speaking so slowly that other people could have noticed. Or the opposite - being so fidgety or restless that you have been moving around a lot more than usual: not at all 9. Thoughts that you would be better off or of hurting yourself in some way: not at all Total score: 1 Depression Screening Interpretation: Positive Depression Screening Done: Yes Source: Developed by Drs. Andres Pierre, Julieta Hinds, Patrick Villaseñor and colleagues, with an educational omari from [employer]. Thrive Questionnaire Date Thrive assessed: 11/02/24 I am a: Patient What is your living situation today?: I have a steady place to live Within the past 12 months, did the food you bought not last and you didn't have the money to get more?: Never true Within the past 12 months, did you worry whether your food would run out before you got money to buy more?: Never true Do you have trouble paying for medicines?: No Do you have trouble getting transportation to medical appointments?: No Do you have trouble paying your heating and electricity bill?: No Do you have trouble taking care of your child, family member or friend?: No Do you have trouble with day-to-day activities such as bathing, preparing meals, shopping, managing finances, etc.?: No Are you currently unemployed and looking for a job?: No Are you interested in more education?: No Please select the resources that you would like help with: None Currently or been in a relationship where the following occur: No concerns reported THRIVE Score: 0 AUDIT C Alcohol Use Questionnaire (AUDIT-C) 1. How often do you have a drink containing alcohol?: 2-4 times a month Total Score: 2 DELMY-7 AMB Questionnaire DELMY-7 Date DELMY - 7 assessed: 11/04/24 Feeling nervous, anxious, or on edge: 1 = Several days Not being able to stop or control worryin = Not at all Worrying too much about different things: 0 = Not at all Trouble relaxin = Not at all Being so restless that it is hard to sit still: 0 = Not at all Becoming easily annoyed or irritable: 1 = Several days Feeling afraid as if something awful might happen: 0 = Not at all Total DELMY-7 score (0-4 normal; 5-9 mild; 10-14 moderate; 15-21 severe): 2 Source: Developed by Drs. Andres Pierre, Julieta Hinds, Patrick Villaseñor and colleagues, with an educational omari from [employer]. Physical exam (Primary Care) Vital Signs: Last Vital Signs Temp 97.1 F 11/04/24 08:30 Pulse 81 11/04/24 08:30 BP 130/68 11/04/24 08:30 Pulse Ox 100 11/04/24 08:30 Oxygen Delivery Method Room Air 11/04/24 08:30 BMI result Body Mass Index 24.8 Tobacco/Smoking Status: Tobacco use Status Tobacco use date assessed 11/04/24 11/04/24 08:34 Patient Tobacco Use Status Former Tobacco user 11/04/24 08:34 e-Cigarette/Vaping Use Never Used 11/04/24 08:34 PHQ-9: PHQ-9 Score PHQ-9: Total score 1 11/04/24 08:34 Depression Screening Interpretation: Positive Thrive Assessment: Date of Thrive Assessment Date Thrive assessed 11/02/24 11/04/24 08:34 Currently or been in a relationship where the following occur: No concerns reported Coding Level of Care Code Est Pt Prev Care 40-64y(95530) Diagnoses Annual physical exam Z00.00 Assessment & Plan Assessment & Plan (1) Annual physical exam: Code(s): Z00.00 - Encounter for general adult medical examination without abnormal findings Plan: History of Present Illness - The patient is a 39-year-old male presenting for a routine physical examination and follow-up on hematuria. - Hematuria: The patient reports consistent blood in urine, initially identified in previous lab work. - Hepatic hemangioma: A CT scan revealed a hepatic hemangioma, which is believed to be the cause of the hematuria. - The patient was advised to monitor the hemangioma with periodic imaging every five years. - The patient has no significant exercise routine but engages in occasional walking and physical activities related to household projects. - Alcohol consumption is occasional, with approximately one drink on three days per week. Social History - Employment: The patient recently changed firms but maintains the same job role. - Family: with a 5-year-old child. - Exercise: Limited to occasional walking and physical activities related to household projects. - Alcohol: Consumes alcohol occasionally, approximately one drink on three days per week. Review of Systems - Genitourinary: Reports hematuria. - General: Denies any other health concerns or symptoms affecting daily activities. Physical Exam General: Cooperative and healthy appearing Nutritional Appearance: Well nourished Orientation/consciousness: Patient oriented x3 Limitations: No limitations Head: Normal to inspection General: Appearance normal, both eyes and all related structures Neck: Normal visual inspection Chest: Normal palpation of entire chest wall Respiratory: No abnormalities noted during breathing assessment. ormal respiratory effort Neurology: Patient oriented x3. Results - Imaging: CT scan revealed a hepatic hemangioma. Plan 1. Hematuria - Plan to repeat urinalysis to monitor hematuria. 2. Hepatic Hemangioma - Monitor hepatic hemangioma with imaging every five years. Discussion Notes I discussed with the patient the findings of the CT scan, which showed a hepatic hemangioma, and explained that it is likely the cause of the hematuria. We agreed on monitoring the hemangioma with imaging every five years and repeating the urinalysis today to assess the current status of hematuria. Patient Instructions - Follow up with repeat urinalysis as discussed. - Schedule imaging for hepatic hemangioma monitoring every five years.
[2024-11-04 08:30] VITALS: BP 130/68; PULSE 81; TEMP 36.2; O2SAT 100; BMI 24.8
--- OUTSIDE RECORDS SUMMARY | 2024-11-04 09:03 | XMS_ITS | Encounter Summary ---
Author Organization [facility] Address [address] [place] [phone] Phone Care Team Providers Care Forensic Science Technician Name Role Phone Maikel Combs MD Primary Care Provid er Encounter Details Date Type Department Care Team (Late st Contact Info) Description 03/17/2024 Procedure [facility], Ct Scan - [address] [address] Social History Tobacco Use Types Packs/Day Years Used Date Smoking Tobacco: Never Smokeless Tobacco: Never Alcohol Use Standard Drinks/Week Comments Yes 0 (1 standard drink = 0.6 oz pur e alcohol) occassional Education Answer Date Recorded Are you interested in more education? Not on broderick e 03/17/2024 Are you concerned about learning? Not on file 03/17/2024 No 03/17/2024 No 03/17/2024 Digital Access Answer Date Recorded No 03/17/2024 No 03/17/2024 Reliable internet access at home? Not on file 03/17/2024 Device with a working camera? Not on file Intimate Partner Violence Answer Date R ecorded Are you denied basic needs s uch as food, clothing, or medical care? No 03/17/2024 In the past 12 months have y ou been in a relationship with a person who hurts, threatens, or tries to control you? No 03/17/2024 Are you denied basic needs s uch as food, clothing, or medical care? No 03/17/2024 In the past 12 months have y ou been in a relationship with a person who hurts, threatens, or tries to control you? No 03/17/2024 Sex and Gender Information Value Date Recorded Sex Assigned at Male 03/17/2024 9:06 AM EST Legal Sex Male 8:52 AM EST Gender Identity Male 03/17/2024 9:06 AM EST Sexual Orientation Don't know 03/17/2024 9: 16 AM EST documented as of this encounter Functional Status * Calculated C-SSRS Risk Score (Lifetime/Recent) Answer Date of Assessment Author No Risk Indicated 03/17/2024 9:06 AM Mago Barrera RN * [place] Suicide Severity Rating Scale (Screener/Recent Self-Report) Question Answer Date of Assessment Author 1. Wish to be (Past 1 Month) No 03/17/2024 9:06 AM Trung Downs RN 2. Non-Specific Active Suicidal Thoughts (Past 1 Month) No 03/17/2024 9:06 AM Trung Downs RN 6. Suicidal Behavior (Lifetime) No 03/17/2024 9:06 AM Trung Downs RN documented as of this encounter Plan of Treatment Not on file documented as of this encounter Visit Diagnoses Not on filedocumented in this encounter Care Teams Forensic Science Technician Relationship Specialty Start Date End Date Maikel Combs MD [address] [place] [id number] PCP - General Internal Medicine 03/17/24 documented as of this encounter Additional Source Comments The information contained in this document represents components of the legal health record. It is not the complete legal health record.[facility]
--- OUTSIDE RECORDS SUMMARY | 2024-11-04 09:03 | XMS_ITS | Clinical Summary ---
Author Organization [facility] Address [address] [place] [phone] Phone Care Team Providers Care Transferrer Name Role Phone Maikel Combs MD Primary Care Provid er Allergies No known active allergies Medications morphine (MSIR) 15 MG tablet Take 1 tablet (15 mg total) by mouth every 4 (four) hours as needed for pain (specific location in comments). Partial fill ok 12 tablet 03/17/2024 Active Social History Tobacco Use Types Packs/Day Years Used Date Smoking Tobacco: Never Smokeless Tobacco: Never Tobacco Cessation:Counseling Given: Not Answered Alcohol Use Standard Drinks/Week Comments Yes 0 [...] Don't know 03/17/2024 9: 16 AM EST Last Filed Vital Signs Vital Sign Reading Time Taken Comments Blood Pressure 121/79 03/17/2024 1:53 PM EST Pulse 84 03/17/2024 1:53 PM EST Temperature 36.5 C (97.7 F) 03/17/2024 1:53 PM EST Respiratory Rate 17 03/17/2024 1:53 PM EST Oxygen Saturation 97% 03/17/2024 1:53 PM EST Inhaled Oxygen Concentration - - Weight 75.5 kg (166 lb 8 oz) 03/17/2024 9:03 AM EST Height 170.2 cm (5' 7 ) 03/17/2024 9:03 AM EST Body Mass Index 26.08 03/17/2024 9:03 AM EST Plan of Treatment Health Maintenance Due Date Last Done Comments Adult Td,Tdap Booster 1984 LIPID PANEL 1984 DEPRESSION SCREENING 1996 HEPATITIS C SCREENING 2002 HIV ONE-TIME SCREENING (18-6 5 YEARS) 2002 COVID-19 VACCINE (2023-2 5 season) 2023 SCREENING FOR DIABETES 03/17/2027 03/17/2024 SMOKING STATUS SCREENING (On ce After 26 Yrs) Completed 03/17/2024 HEPATITIS A VACCINES Aged Out No long er eligible based on patient's age to complete this topic HIB VACCINES Aged Out No longer eligi ble based on patient's age to complete this topic MENINGOCOCCAL VACCINES (ACWY) Aged Out No longer eligible based on patient's age to complete this topic MENINGOCOCCAL VACCINES (B) Aged Out N o longer eligible based on patient's age to complete this topic PNEUMOCOCCAL VACCINES (0-49 years) Aged Out No longer eligible based on patient's age to complete this topic Medical Devices Not on file Insurance [facility] [address] [place], [place] [id number] [employer] Care Teams Transferrer Relationship Specialty Start Date End Date Maikel Combs MD [address] [place] [address] Drive [facility] [address] [place] [address] PCP - General Internal Medicine 03/17/24 Additional Source Comments The information contained in this document represents components of the legal health record. It is not the complete legal health record.[facility]
== END 2024-11-04 09:18 | disposition home or self-care (01) ==
LOC: HO.HMCH 08:27
PROVIDERS: PCP Internal Medicine; Visit Provider Internal Medicine
DX: Z00.00 Encounter for general adult medical examination without abnormal findings (principal)